=== PATIENT | male | born 1935 | race Caucasian/White ===

== ENCOUNTER 2018-03-15 09:07 | Outpatient (CLI) | payer MEDICARE | END 2018-03-15 09:10 | LOC: LAB 09:07 | PROVIDERS: ATTEND Family Medicine | DX: Z12.5 Encounter for screening for malignant neoplasm of prostate (principal) | CPT/HCPCS: 36415; 84153; G0103 ==

== ENCOUNTER 2018-05-03 10:06 | Outpatient (CLI) | payer MEDICARE | END 2018-05-03 14:01 | LOC: LAB 10:06 | PROVIDERS: ATTEND Family Medicine | DX: C61 Malignant neoplasm of prostate (principal) | CPT/HCPCS: 36415; 84153 ==